=== PATIENT | female | born 1955 | race African-American/Black ===

== ENCOUNTER 2022-05-17 05:53 | Inpatient (IN) | payer MEDICARE, OTHER ==
[~2022-05-17] VITALS: Ht 162.6 cm; Wt 146.6 kg
[~2022-05-17 05:53] MED LIST: ASPI-1497 PO; BACL-141 PO; BENZ200C52 PO; FLUO10CA28 PO; LISI20TA31 PO; LORA10TA7 PO; MELO-106 PO; METF-414 PO; OXYB15TA9 PO; PANT40TA51 PO; TRAM50TA3 PO
[2022-05-17] MEDS ORDERED: FAMOTIDINE 20MG/2ML VIAL IV STA (06:40)
[2022-05-17 06:50] LABS: BASOPHILS % 0.5 % (0.0-2.0); HEMATOCRIT. 30.5 % (36.0-48.0); HEMOGLOBIN. 9.4 g/dL (12.0-16.0); MEAN CORPUSCULAR HEMOGLOBIN 23.2 pg (28.0-32.0); MEAN CORPUSCULAR VOLUME 75.4 fL (81.0-99.0); MEAN PLATELET VOLUME 7.3 fl (7.4-10.4); MONOCYTES % 7.2 % (2.0-8.0); NEUTROPHILS % 82.3 % (40.0-76.0); PLATELET 331 x1000/uL (130-400); RED BLOOD CELL COUNT 4.05 mill/uL (4.2-5.4); RED CELL DISTRIBUTION WIDTH 18.1 % (11.6-14.6)
[2022-05-17 07:00] LABS: CHLORIDE 106 mEq/L (98-107)
[2022-05-17] MEDS ORDERED: FAMOTIDINE 20MG/2ML VIAL IV NR (07:00)
[2022-05-17] MEDS ORDERED: LEVOFLOXACIN 500MG PREMIX 100 ML IV ONE (07:45)
[2022-05-17] MEDS ORDERED: ASPIRIN 81MG EC TABLET PO ONE (07:45)
[2022-05-17 08:10] LABS: CLARITY URINE CLEAR (CLEAR); COLOR URINE YELLOW (YELLOW); KETONES URINE NEGATIVE (NEGATIVE); LEUKOCYTE ESTERASE URINE NEGATIVE (NEGATIVE); NITRITE URINE NEGATIVE (NEGATIVE); OCCULT BLOOD URINE NEGATIVE (NEGATIVE); PH URINE 5.5 (4.5-8.0); PROTEIN URINE NEGATIVE (NEGATIVE); SPECIFIC GRAVITY URINE 1.013 (1.005-1.030); UROBILINOGEN URINE 0.2 E.U./dL (0.2-1.0)
[2022-05-17] MEDS ORDERED: DIPHENHYDRAMINE 50MG/ML VIAL IV PRN (12:15)
[2022-05-17] MEDS ORDERED: IPRATROPIUM/ALBUTEROL 0.5-3(2.5)MG/3ML NEB HHN PRN (12:15)
[2022-05-17] MEDS ORDERED: ONDANSETRON HCL 4MG/2ML INJ IV PRN (12:15)
[2022-05-17] MEDS ORDERED: ACETAMINOPHEN 325MG TABLET PO PRN (12:15)
[2022-05-17] MEDS ORDERED: CLONIDINE 0.1MG TABLET PO PRN (12:15)
[2022-05-17] MEDS ORDERED: NALOXONE HCL 0.4MG/ML VIAL IV PRN (12:30)
[2022-05-17] MEDS ORDERED: AZITHROMYCIN 500MG/250ML 250 ML IV NR (12:30)
[2022-05-17] MEDS: MORPHINE SULFATE 2 MG/ML CPJ (NOT FOR IM USE) IV PRN ×3 (12:36→22:09)
[2022-05-17 14:00] VITALS: BP 146/53
[2022-05-17] MEDS ORDERED: AZITHROMYCIN 500 MG in DEXT 5% WATER 250 ML IV SCH (14:00)
[2022-05-17 14:03] LABS: TOTAL IRON BINDING CAPACITY 477 ug/dL (250-450)
[2022-05-17] MEDS ORDERED: GABA-532 PO (14:27)
[2022-05-17] MEDS ORDERED: TIZA-191 PO (14:31)
[2022-05-17] MEDS ORDERED: AMIT10TA6 PO (14:31)
[2022-05-17] MEDS ORDERED: ALBU18HF2 INH (14:32)
[2022-05-17] MEDS ORDERED: DICL100G31 TP (14:33)
[2022-05-17] MEDS ORDERED: LIDO30CR TP (14:34)
[2022-05-17] MEDS ORDERED: ATOR20TA65 PO (14:35)
[2022-05-17] MEDS ORDERED: DILT180T11 PO (14:39)
[2022-05-17] MEDS ORDERED: LOSA1TAB40 PO (14:39)
[2022-05-17 14:43] VITALS: BP 146/53
[2022-05-17 16:00] VITALS: BP 155/66
[2022-05-17] MEDS: LIDOCAINE 5% PATCH TOP SCH (18:06)
[2022-05-17] MEDS: RIVAROXABAN 20 MG TABLET PO SCH (18:06)
[2022-05-17 20:00] VITALS: BP 150/57
[2022-05-18] VITALS: BP 138/60
[2022-05-18] MEDS: MORPHINE SULFATE 2 MG/ML CPJ (NOT FOR IM USE) IV PRN ×5 (02:10→22:34)
[2022-05-18 04:00] VITALS: BP 130/52
[2022-05-18 07:42] LABS: CHLORIDE 103 mEq/L (98-107)
[2022-05-18 07:53] LABS: BASOPHILS % 0.4 % (0.0-2.0); EOSINOPHILS % 0.4 % (0.0-5.0); HEMATOCRIT. 29.8 % (36.0-48.0); HEMOGLOBIN. 9.3 g/dL (12.0-16.0); LYMPHOCYTES % 9.8 % (20.0-50.0); MEAN CORPUSCULAR HEMOGLOBIN 23.3 pg (28.0-32.0); MEAN CORPUSCULAR VOLUME 74.4 fL (81.0-99.0); MEAN PLATELET VOLUME 8.1 fl (7.4-10.4); MONOCYTES % 10.9 % (2.0-8.0); NEUTROPHILS % 78.5 % (40.0-76.0); PLATELET 354 x1000/uL (130-400); RED CELL DISTRIBUTION WIDTH 18.1 % (11.6-14.6)
[2022-05-18 08:00] VITALS: BP 159/75
[2022-05-18] MEDS: LIDOCAINE 5% PATCH TOP SCH (09:01)
[2022-05-18] MEDS: HYDROCODONE/ACETAMINOPHEN 5/325MG TABLET PO PRN ×2 (10:52→17:34)
[2022-05-18 12:00] VITALS: BP 158/83
[2022-05-18] MEDS: BACLOFEN 10MG TABLET PO SCH ×2 (15:07→22:34)
[2022-05-18] MEDS: AZITHROMYCIN 500 MG in DEXT 5% WATER 250 ML IV SCH (15:07)
[2022-05-18 16:00] VITALS: BP 147/75
[2022-05-18] MEDS: RIVAROXABAN 20 MG TABLET PO SCH (18:31)
[2022-05-18 20:00] VITALS: BP 155/90
[2022-05-19] VITALS: BP 154/61
[2022-05-19 04:00] VITALS: BP 151/54
[2022-05-19] MEDS: MORPHINE SULFATE 2 MG/ML CPJ (NOT FOR IM USE) IV PRN ×2 (05:15→13:46)
[2022-05-19] MEDS: BACLOFEN 10MG TABLET PO SCH ×3 (05:16→21:19)
[2022-05-19 07:06] LABS: HEMATOCRIT. 27.9 % (36.0-48.0); HEMOGLOBIN. 8.8 g/dL (12.0-16.0); MEAN CORPUSCULAR HEMOGLOBIN 23.4 pg (28.0-32.0); MEAN CORPUSCULAR VOLUME 74.1 fL (81.0-99.0); MEAN PLATELET VOLUME 7.8 fl (7.4-10.4); PLATELET 303 x1000/uL (130-400); RED BLOOD CELL COUNT 3.76 mill/uL (4.2-5.4); RED CELL DISTRIBUTION WIDTH 17.8 % (11.6-14.6)
[2022-05-19 07:24] LABS: CHLORIDE 99 mEq/L (98-107)
[2022-05-19 07:47] VITALS: BP 121/57
[2022-05-19] MEDS: LIDOCAINE 5% PATCH TOP SCH (08:55)
[2022-05-19 09:27] LABS: PLATELET ESTIMATE NORMAL
[2022-05-19 12:00] VITALS: BP 135/72
[2022-05-19] MEDS: AZITHROMYCIN 500 MG in DEXT 5% WATER 250 ML IV SCH (13:52)
[2022-05-19 16:00] VITALS: BP 152/71
[2022-05-19] MEDS: RIVAROXABAN 20 MG TABLET PO SCH (17:34)
[2022-05-19 20:00] VITALS: BP 150/66
[2022-05-19] MEDS: IPRATROPIUM/ALBUTEROL 0.5-3(2.5)MG/3ML NEB HHN SCH (20:06)
[2022-05-20] VITALS: BP 142/59
[2022-05-20] MEDS: IPRATROPIUM/ALBUTEROL 0.5-3(2.5)MG/3ML NEB HHN SCH ×4 (01:51→21:56)
[2022-05-20 04:00] VITALS: BP 148/68
[2022-05-20] MEDS: BACLOFEN 10MG TABLET PO SCH ×3 (05:24→20:47)
[2022-05-20 06:17] LABS: HEMATOCRIT. 28.7 % (36.0-48.0); HEMOGLOBIN. 9.2 g/dL (12.0-16.0); MEAN CORPUSCULAR HEMOGLOBIN 23.6 pg (28.0-32.0); MEAN CORPUSCULAR VOLUME 73.8 fL (81.0-99.0)
[2022-05-20] MEDS ORDERED: METHYLPREDNISOLONE SOD SUCC 40 MG/ML VIAL IV SCH (06:45)
[2022-05-20 07:12] LABS: CHLORIDE 100 mEq/L (98-107)
[2022-05-20 07:39] VITALS: BP 144/61
[2022-05-20 08:00] LABS: PLATELET 257 x1000/uL (130-400)
[2022-05-20] MEDS ORDERED: SIMETHICONE 80MG TABLET CHEW PO PRN (08:00)
[2022-05-20 08:05] LABS: PLATELET ESTIMATE NORMAL
[2022-05-20] MEDS: HYDROCODONE/ACETAMINOPHEN 5/325MG TABLET PO PRN ×2 (10:33→20:47)
[2022-05-20] MEDS: LIDOCAINE 5% PATCH TOP SCH (10:33)
[2022-05-20 12:00] VITALS: BP 149/65
[2022-05-20 15:36] LABS: BG BASE EXCESS 6.1 mmol/L (-2.0-2.0); BG CARBOXYHEMOGLOBIN 0.3 % (0.5-1.5); BG FRACTION INSPIRED OXYGEN 21; BG HCO3 ACT 31.4 mmol/L (22.0-26.0); BG METHEMOGLOBIN 0.1 % (0.0-1.5); BG OXYGEN SATURATION 83.9 % (92.0-98.5); BG OXYHEMOGLOBIN 83.6 % (94.0-97.0); BG PCO2 49.2 mmHg (35.0-45.0); BG PH 7.423 (7.350-7.450); BG PO2 47.3 mmHg (75.0-100.0); BG SAMPLE SITE LEFT RADIAL; BG TOTAL HEMOGLOBIN 10.7 g/dL (12.0-18.0); BG VENT MODE ROOM AIR
[2022-05-20 16:00] VITALS: BP 139/66
[2022-05-20] MEDS: PREDNISONE 20MG TABLET PO SCH (18:13)
[2022-05-20] MEDS: RIVAROXABAN 20 MG TABLET PO SCH (18:13)
[2022-05-20 20:00] VITALS: BP 125/68
[2022-05-20] MEDS ORDERED: OXYB5TAB17 PO (20:14)
[2022-05-20] MEDS ORDERED: DILT-26 PO (20:14)
[2022-05-20] MEDS ORDERED: MONT-39 PO (20:14)
[2022-05-20] MEDS ORDERED: FLUT1BLS13 IH (20:14)
[2022-05-20] MEDS ORDERED: NITR100C11 PO (20:14)
[2022-05-20] MEDS ORDERED: RIVA10TA PO (20:38)
[2022-05-20] MEDS ORDERED: T3 PO (20:38)
[2022-05-21] VITALS: BP 130/70
[2022-05-21] MEDS: IPRATROPIUM/ALBUTEROL 0.5-3(2.5)MG/3ML NEB HHN SCH ×4 (01:41→19:36)
[2022-05-21 04:00] VITALS: BP 150/70
[2022-05-21] MEDS: BACLOFEN 10MG TABLET PO SCH ×3 (06:10→21:38)
[2022-05-21 06:45] LABS: HEMATOCRIT. 30.3 % (36.0-48.0); HEMOGLOBIN. 9.7 g/dL (12.0-16.0); MEAN CORPUSCULAR HEMOGLOBIN 23.6 pg (28.0-32.0); MEAN CORPUSCULAR VOLUME 73.6 fL (81.0-99.0); PLATELET 376 x1000/uL (130-400); RED BLOOD CELL COUNT 4.13 mill/uL (4.2-5.4); RED CELL DISTRIBUTION WIDTH 18.1 % (11.6-14.6)
[2022-05-21 07:39] LABS: CHLORIDE 99 mEq/L (98-107)
[2022-05-21 07:57] VITALS: BP 141/56
[2022-05-21] MEDS: LIDOCAINE 5% PATCH TOP SCH (09:33)
[2022-05-21] MEDS: PREDNISONE 20MG TABLET PO SCH (09:33)
[2022-05-21 10:30] LABS: PLATELET ESTIMATE NORMAL
[2022-05-21 12:04] VITALS: BP 167/74
[2022-05-21] MEDS: BUDESONIDE 0.5MG/2ML NEB HHN SCH ×2 (14:49→19:36)
[2022-05-21 16:00] VITALS: BP 138/79
[2022-05-21] MEDS: RIVAROXABAN 20 MG TABLET PO SCH (18:16)
[2022-05-21 20:00] VITALS: BP 141/57
[2022-05-21] MEDS: HYDROCODONE/ACETAMINOPHEN 5/325MG TABLET PO PRN (23:45)
[2022-05-22] VITALS: BP 130/76
[2022-05-22] MEDS: IPRATROPIUM/ALBUTEROL 0.5-3(2.5)MG/3ML NEB HHN SCH ×3 (01:59→14:16)
[2022-05-22] MEDS: HYDROCODONE/ACETAMINOPHEN 5/325MG TABLET PO PRN (03:46)
[2022-05-22 04:00] VITALS: BP 145/62
[2022-05-22] MEDS: BACLOFEN 10MG TABLET PO SCH ×2 (05:31→14:00)
[2022-05-22 06:27] LABS: BASOPHILS % 0.2 % (0.0-2.0); EOSINOPHILS % 0.3 % (0.0-5.0); HEMOGLOBIN. 9.4 g/dL (12.0-16.0); MEAN CORPUSCULAR HEMOGLOBIN 23.7 pg (28.0-32.0); MEAN CORPUSCULAR VOLUME 75.7 fL (81.0-99.0); MEAN PLATELET VOLUME 7.7 fl (7.4-10.4); MONOCYTES % 12.3 % (2.0-8.0); NEUTROPHILS % 76.2 % (40.0-76.0); PLATELET 262 x1000/uL (130-400); RED BLOOD CELL COUNT 3.96 mill/uL (4.2-5.4); RED CELL DISTRIBUTION WIDTH 17.9 % (11.6-14.6)
[2022-05-22 06:51] LABS: CHLORIDE 100 mEq/L (98-107)
[2022-05-22 07:44] VITALS: BP 130/49
[2022-05-22] MEDS: PREDNISONE 20MG TABLET PO SCH (08:55)
[2022-05-22] MEDS: LIDOCAINE 5% PATCH TOP SCH (08:56)
[2022-05-22] MEDS: BUDESONIDE 0.5MG/2ML NEB HHN SCH (09:09)
[2022-05-22 10:19] LABS: BG FRACTION INSPIRED OXYGEN 32; BG HCO3 ACT 29.7 mmol/L (22.0-26.0); BG METHEMOGLOBIN 0.1 % (0.0-1.5); BG OXYHEMOGLOBIN 95.9 % (94.0-97.0); BG PCO2 44.6 mmHg (35.0-45.0); BG PH 7.442 (7.350-7.450); BG PO2 83.1 mmHg (75.0-100.0); BG SAMPLE SITE RIGHT BRACHIAL; BG TOTAL HEMOGLOBIN 10.6 g/dL (12.0-18.0); BG VENT MODE NASAL CANNULA
[2022-05-22] MEDS ORDERED: PRED10TA MT (10:29)
[2022-05-22 10:34] VITALS: BP 130/49
[2022-05-22 12:09] VITALS: BP 135/73
== END 2022-05-22 16:24 | disposition home health service (06) | DRG 203 ==
LOC: ER 05:53 → 6WST 11:17 → EDBEDREQ 11:20 → ENRESERV 12:28
PROVIDERS: ADMIT Internal Medicine; ATTEND Internal Medicine
DX: M94.0 Chondrocostal junction syndrome [Tietze] (principal); J96.01 Acute respiratory failure with hypoxia; E66.2 Morbid (severe) obesity with alveolar hypoventilation; Z68.43 Body mass index [BMI] 50.0-59.9, adult; D50.9 Iron deficiency anemia, unspecified; E11.9 Type 2 diabetes mellitus without complications; G89.29 Other chronic pain; Z20.822 Contact with and (suspected) exposure to COVID-19; I11.9 Hypertensive heart disease without heart failure; M54.9 Dorsalgia, unspecified; J45.909 Unspecified asthma, uncomplicated; Z86.711 Personal history of pulmonary embolism; Z95.828 Presence of other vascular implants and grafts; Z79.01 Long term (current) use of anticoagulants; Z79.899 Other long term (current) drug therapy; Z98.51 Tubal ligation status; Z88.1 Allergy status to other antibiotic agents; Z88.0 Allergy status to penicillin; Z88.2 Allergy status to sulfonamides; Z71.3 Dietary counseling and surveillance
CPT/HCPCS: 36415; 36600; 71045; 71250; 74176; 80048; 80053; 81003; 82375; 82805; 83540; 83550; 83605; 83880; 84145; 84484; 85025; 85379; 87426; 93005; 93306; 93970; 94640; 97116; 97161; 97162; 97165; 97166; 97535; 99285; C9803; J0456; J1956; J2270; J2405; J3490; J7060; J7512; J7626

== ENCOUNTER 2022-10-08 13:29 | Emergency (ER) | payer MEDICARE, OTHER ==
[~2022-10-08] VITALS: Ht 165.1 cm; Wt 145.5 kg
[~2022-10-08 13:29] MED LIST changes: +ALBU18HF2 INH; +AMIT10TA6 PO; +ATOR20TA65 PO; -BENZ200C52 PO; +DICL100G31 TP; +DILT-26 PO; -FLUO10CA28 PO; +FLUT1BLS13 IH; +GABA-532 PO; -LISI20TA31 PO; -LORA10TA7 PO; +LOSA1TAB40 PO; -MELO-106 PO; -METF-414 PO; +MONT-39 PO; +NITR100C11 PO; -OXYB15TA9 PO; +PRED10TA MT; +RIVA10TA PO; +T3 PO; +TIZA-191 PO; -TRAM50TA3 PO
[2022-10-08] MEDS ORDERED: HYDROCODONE/ACETAMINOPHEN 5/325MG TABLET PO STA (14:24)
[2022-10-08 15:34] LABS: CHLORIDE 102 mEq/L (98-107)
[2022-10-08 15:40] LABS: BASOPHILS % 0.9 % (0.0-2.0); EOSINOPHILS % 1.8 % (0.0-5.0); HEMATOCRIT. 26.5 % (36.0-48.0); HEMOGLOBIN. 8.8 g/dL (12.0-16.0); MEAN CORPUSCULAR HEMOGLOBIN 26.4 pg (28.0-32.0); MEAN CORPUSCULAR VOLUME 79.3 fL (81.0-99.0); MEAN PLATELET VOLUME 7.5 fl (7.4-10.4); MONOCYTES % 7.1 % (2.0-8.0); NEUTROPHILS % 78.2 % (40.0-76.0); PLATELET 260 x1000/uL (130-400); RED BLOOD CELL COUNT 3.34 mill/uL (4.2-5.4); RED CELL DISTRIBUTION WIDTH 15.7 % (11.6-14.6)
[2022-10-08 17:26] LABS: CLARITY URINE CLEAR (CLEAR); COLOR URINE YELLOW (YELLOW); KETONES URINE NEGATIVE (NEGATIVE); LEUKOCYTE ESTERASE URINE NEGATIVE (NEGATIVE); NITRITE URINE NEGATIVE (NEGATIVE); OCCULT BLOOD URINE NEGATIVE (NEGATIVE); PROTEIN URINE NEGATIVE (NEGATIVE); SPECIFIC GRAVITY URINE 1.008 (1.005-1.030); UROBILINOGEN URINE 0.2 E.U./dL (0.2-1.0)
[2022-10-08] MEDS ORDERED: ACET-2708 MT (17:44)
[2022-10-08] MEDS ORDERED: CYCL10TA21 MT (17:44)
[2022-10-08 18:20] VITALS: BP 130/76
== END 2022-10-08 19:20 | disposition home or self-care (01) ==
LOC: ER 13:29
DX: R10.9 Unspecified abdominal pain (principal); I10 Essential (primary) hypertension; E11.9 Type 2 diabetes mellitus without complications; E78.00 Pure hypercholesterolemia, unspecified; J45.909 Unspecified asthma, uncomplicated; Z88.0 Allergy status to penicillin; Z88.6 Allergy status to analgesic agent; Z79.899 Other long term (current) drug therapy; Z79.82 Long term (current) use of aspirin; Z68.43 Body mass index [BMI] 50.0-59.9, adult
CPT/HCPCS: 36415; 74176; 80053; 81003; 85025; 99284